=== PATIENT | female | born 1950 | race Caucasian/White ===

== ENCOUNTER 2019-07-23 09:09 | Emergency (ER) | payer BC, MEDICARE ==
[2019-07-23 09:37] VITALS: BP 148/55
--- NOTE | 2019-07-23 10:01 | UC ---
Hip/Pelvis Pain - HPI Summary HPI Summary: 69-year-old female comes in with a chief complaint of left hip pain. She woke up with it 3 days ago. Pain is primarily in the lateral aspect of the hip. Denies any rash. Denies any fevers or chills feels well otherwise. Pain is worse with range of motion. Denies any back pain. No known trauma. - History Of Current Complaint Chief Complaint: UCLowerExtremity Stated Complaint: LEFT HIP PAIN Time Seen by Provider: 07/23/19 09:49 Pain Intensity: 5 - Allergies/Home Medications Allergies/Adverse Reactions: Allergies Allergy/AdvReac Type Severity Reaction Status Date / Time No Known Allergies Allergy Verified 07/23/19 09:37 Home Medications: Home Medications Amitriptyline TAB* [Elavil TAB*] 10 mg PO BEDTIME 07/23/19 [History Confirmed ] Budesonide CAP(NF) 3 mg PO DAILY 07/23/19 [History Confirmed 07/23/19] Irbesartan (NF) [Avapro (NF)] 150 mg PO DAILY 07/23/19 [History Confirmed ] PMH/Surg Hx/FS Hx/Imm Hx Previously Healthy: Yes Cardiovascular History: Hypertension - Surgical History Surgical History: Yes Surgery Procedure, Year, and Place: Bowel Resection, 1988. R knee. Cholycystectomy 2015 - Family History Known Family History: Positive: Non-Contributory - Social History Alcohol Use: Rare Substance Use Type: None Smoking Status (MU): Former Smoker Type: Cigarettes Amount Used/How Often: 1 PPD Length of Time of Smoking/Using Tobacco: 25 Years Have You Smoked in the Last Year: No When Did the Patient Quit Smoking/Using Tobacco: ~2008 - Immunization History Most Recent Influenza Vaccination: July 2014 Review of Systems All Other Systems Reviewed And Are Negative: Yes Constitutional: Positive: Negative Skin: Positive: Negative Eyes: Positive: Negative ENT: Positive: Negative Respiratory: Positive: Negative Cardiovascular: Positive: Negative Gastrointestinal: Positive: Negative Motor: Positive: Other - see hpi Neurovascular: Positive: Negative Musculoskeletal: Positive: Other: - see hpi Neurological: Positive: Negative Psychological: Positive: Negative Is Patient Immunocompromised?: No Physical Exam Triage Information Reviewed: Yes Appearance: Well-Appearing, Well-Nourished, Pain Distress - mild with lt rom Vital Signs: Initial Vital Signs Temp 97.8 F 07/23/19 09:31 Pulse 83 07/23/19 09:31 Resp 18 07/23/19 09:31 BP 148/55 07/23/19 09:31 Pulse Ox 98 07/23/19 09:31 Vital Signs Reviewed: Yes Eye Exam: Normal Eyes: Positive: Conjunctiva Clear Neck: Positive: Supple Respiratory: Positive: No respiratory distress Musculoskeletal: Positive: Other: - Some tenderness to palpation over the left greater trochanter. There is pain with range of motion in the left hip with flexion extension and abduction. Patient is able to weight-bear. No back pain. No pain in the buttock along the sciatic distribution. Neurological: Positive: Alert Psychological: Positive: Age Appropriate Behavior Skin Exam: Normal Hip Injury Course/Dx - Course Course Of Treatment: Vacuum Furnace Operator: Jessenia Virk S ([id number]) Industrial Relations Specialist: YAQUELIN (YAQUELIN) Report Date: 07/23/2019 09:45:00 Report Status: Final Start of Report Content Patient Name: ALEXUS MINOR Medical Record#: [id number] Ordering Physician: José Robles MD Acct.#: [id number] : 12/1949 Age: 69 Sex: F Location: [facility] Exam Date: 07/23/19944 ADM Status: REG ER Order Information: HIP LEFT 2 VIEWS AND PELVIS Accession Number: [id number] CPT: 30283 Indication: Left hip pain. 2 views of the left hip are reviewed. There is no fracture or dislocation. No other bone or joint abnormality is identified. Calcifications in the soft tissues surrounding the left hip is noted. IMPRESSION: No fracture of the left hip is noted. < Electronically signed by Jessenia Virk MD in OV> 07/23/19 1031 Dictated By: Jessenia Virk MD Dictated Date/Time: 07/23/19 103 Transcribed Date/Time: 07/23/19 103 Copy to: CC:Lynne KEBEDE; José Robles MD Imaging - [facility] Imaging - [place] [facility] [place] Imaging - [facility] [address] [address] ph [phone]) ph [phone]) ph ([phone]) ===== End of Report Content Discussed the x-rays with the patient and her family. There are some calcifications seen in the x-ray. The overall plan is acetaminophen as needed Flexeril as needed. Because of the patient's Crohn she's been told to not take nonsteroidal anti-inflammatories. Follow-up with orthopedics or sports medicine. - Differential Dx/Diagnosis Provider Diagnosis: Left hip pain Discharge ED - Sign-Out/Discharge Documenting (check all that apply): Patient Departure All imaging exams completed and their final reports reviewed: Yes - Discharge Plan Condition: Stable Disposition: HOME Prescriptions: Cyclobenzaprine TAB* [Flexeril 10 MG TAB*] 10 mg PO TID PRN #15 tab MDD 3 PRN Reason: Pain - Moderate Patient Education Materials: Hip Pain (ED) Referrals: Lynne Sandhu [Primary Care Provider] - Paul Reynaga MD [Medical Doctor] - [facility] [Provider Group] Additional Instructions: FOLLOW UP WITH SPORTS MEDICINE OR ORTHOPEDICS. GET REEVALUATED SOONER IF NOT IMPROVING OR YOUR CONDITION WORSENS OR ANY QUESTIONS OR CONCERNS - Billing Disposition and Condition Condition: STABLE Disposition: Home
== END 2019-07-23 10:59 | disposition home or self-care (01) ==
LOC: UCCORT 09:09
DX: M25.552 Pain in left hip (principal); I10 Essential (primary) hypertension; Z87.891 Personal history of nicotine dependence
CPT/HCPCS: 99211; G0463

== ENCOUNTER 2019-10-07 09:46 | Emergency (ER) | payer MEDICARE ==
--- OUTSIDE RECORDS SUMMARY | 2019-10-07 11:06 | XMS REPORT | Continuity of Care Document ---
:1950 External Reference #:[id number] Author Name Rosi Chávez MD Address [address] [place] [address] Care Team Providers Name Role Phone Janet Art MD - Internal Medicine Care Team Information Forms Analysis Manager [phone] Marylin Huddleston MD - Care Team Information Forms Analysis Manager [phone] Ophthalmology Rosi Chávez MD - Internal Care Team Information Forms Analysis Manager Medicine Problems Active Problems Provider Date Gastroesophageal reflux disease Luis Manuel Duran MD Onset: 08/23/2015 Note: upper endoscopy to D2 2010 Essential hypertension Luis Manuel Duran MD Onset: 08/23/2015 Note: low renin Degenerative joint disease involving multiple Luis Manuel Duran MD Onset: 2014 joints Diverticular disease of colon Luis Manuel Duran MD Onset: 08/23/2015 Adult health examination Luis Manuel Duran MD Onset: 08/23/2015 Note: Next tdaP 2016. Aug 2016 LDL 106 HDL 33 TG 186 chol 176; LDL goal 160. Breast exam and mammogram Jan 2015 (Dr Watson). Pap 2012 (cervical cancer screening should be restarted 2016-pt. states she will go to [facility] Dr. Watson). T -1.1 2012 (osteoporosis screening should be restarted 2017). D 2014. Welcome to Medicare 23 Aug 2015. Iron deficiency Luis Manuel Duran MD Onset: 08/23/2015 Note: February 2016 ferritin 14 Non-alcoholic fatty liver Luis Manuel Duran MD Onset: 08/23/2015 Note: TS ABC TSH AAT SPEP ODILIA liver sono - 2013. Compression fracture of vertebral column Luis Manuel Duran MD Onset: 08/23/2015 Note: L1,5 Crohn's disease Luis Manuel Duran MD Onset: 08/23/2015 Note: since 1973; resection of 1/3 of the ileum and right hemicolectomy 1989; minimal aphtous ulcerations of the anastomosis, colonoscopy to ileotransverse anastomosis Bx December 2015 Rotator cuff syndrome Luis Manuel Duran MD Onset: 08/23/2015 Seborrheic dermatitis Luis Manuel Duran MD Onset: 08/23/2015 Peripheral venous insufficiency Luis Manuel Duran MD Onset: 08/23/2015 Lakisha Samayoa PA-C Onset: 09/28/2016 Note: Dr. Parsons Liver cyst Lakisha Hector PA-C Onset: 12/03/2016 Note: CT a&p Nov 2016 Heartburn Hector Roman MD Onset: 12/23/2016 Gallstone Jese Hinojosa MD,FACS Onset: 02/02/2017 Abdominal tenderness of left lower Hector Roman MD Onset: 06/25/2017 quadrant Digestive symptom Hector Roman MD Onset: 06/25/2017 Hyperlipidemia Janet Art MD Onset: 09/27/2017 Abnormal glucose level Janet Art MD Onset: 03/28/2018 Edema Janet Art MD Onset: 04/20/2018 Hypokalemia Janet Art MD Onset: 04/20/2018 Palpitations Janet Art MD Onset: 04/20/2018 Dyspnea Willie Tyler M.D., Onset: 09/08/2018 [facility] Tobacco user Willie Tyler M.D., Onset: 09/08/2018 [facility] Chronic obstructive lung disease Janet Art MD Onset: 10/12/2018 Social History Type Date Description Comments Sex Unknown Tobacco Use Start: Unknown End: Quit Unknown Smoking Status Reviewed: 08/21/19 Quit Smokeless Tobacco Never Used Smokeless Tobacco ETOH Use Occasionally consumes alcohol ETOH Use Rarely consumes alcohol Tobacco Use Start: Unknown End: Patient is a former smoker Unknown Recreational Drug Use Denies Drug Use Allergies, Adverse Reactions, Alerts Description No Known Drug Allergies Medications Active Medications SIG Qnty Indications Ordering Date Provider Irbesartan 1 by mouth every 90tabs Janet Art, 05/18/2019 150mg Tablets day MD Jeri Eisenberg Inhale 1 puff By 60units J44.9 Rinku Portillo, 09/12/2018 Mouth Every Day 62.5-25mcg/Inh Aerosol Proair Respiclick Take 1 Or 2 1units J44.9 Gagen, 09/06/2018 Puffs Every 4 To MS Marylin, 108(90Base) 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, 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 Aerosol Needed For Shortness Of Breath Amitriptyline HCL 1 tab by mouth 90tabs R19.4 Hector Roman MD 10/13/2017 10mg every day every Tablets night Omeprazole 1 tab by mouth 90caps Nick Hicks, 12/03/2016 20mg Capsules every day MD CAMERON Vitamin D3 1 by mouth every VatLuis Manuel osman, 08/23/2015 2000Unit day MD Capsules Cholestyramine 1 packet by 180units Janet Art, 05/28/2015 4gm Packet mouth twice a MD day Pentasa 2 by mouth four 720caps K50.90 Carlos Enrique, 500mg Capsules ER times a day MD Rajat Multivitamin Adult 1 by mouth every Unknown day Tablets Vitamin B12 1 by mouth every Unknown 2000mcg day Tablets ER Calcium 500 +D 1 by mouth every Unknown day 653-508lb-Mozf Tablets Budesonide 1 by mouth daily 30caps Carlos Enrique, 3mg Caps DR Rajat MD Part History Medications Citroma drink 1 bottle at 296ml K50.Rajat Boewrs, 04/06/2019 - 1.745GM/30ML 12pm (noon)the 05/26/2019 Solution day before the procedure Dulcolax 4 tablets taken a 4tabs K50.Rajat Bowers, 04/06/2019 - 5mg Tablets 8pm the day 05/26/2019 DR before the procedure Plenvu take half the 1box K50.90 Rajat Monaco, 04/06/2019 - 140gm Solution bottle the day 05/26/2019 Rec before the exam half the morning Immunizations CPT Code Status Date Vaccine Lot # [id number] Given 06/25/2019 Shingrix Zoster Vaccine (HZV), Recombinant, Subunit, Adjuvante 85127 Given 06/25/2019 Influenza High Dose 98290 Given 03/25/2017 Pneumovax Injection [id number] 41665 Given 03/25/2017 Tdap injection [id number] 92482 Given 06/30/2016 H1N1 Immuniation Adminstration 64942 Given 11/27/2015 Zoster Vaccine Live Injection [id number] 86824 Given 08/23/2015 Pneumococcal Conjugate Vaccine 13 Valent For [id number] Intramuscular Use 10568 Given 08/23/2015 Influenza High Dose [id number] 52028 Given 08/22/2008 flu vaccination 88801 Given 07/15/2007 flu vaccination U-Td Given 10/11/2006 Td(Adult),Unspecified U-Pneum Given 07/11/2006 Pneumococcal,Unspecified [id number] U-Td Given 10/11/1996 Td(Adult),Unspecified Vital Signs Date Vital Result Comment 08/21/2019 9:36am BP Systolic Sitting Right Arm 142 mmHg BP Diastolic Sitting Right Arm 64 mmHg Body Temperature 97.8 F Heart Rate 80 /min Respiratory Rate 18 /min Height 69 inches 5'9" Weight 207.00 lb BMI (Body Mass Index) 30.6 kg/m2 BSA (Body Surface Area) 2.10 m2 [place] body weight in kilograms 66 kg O2 % BldC Oximetry 98 % ra 06/09/2019 8:57am BP Systolic Sitting Right Arm 132 mmHg BP Diastolic Sitting Right Arm 68 mmHg Heart Rate 77 /min Respiratory Rate 18 /min Height 69 inches 5'9" Weight 204.00 lb BMI (Body Mass Index) 30.1 kg/m2 BSA (Body Surface Area) 2.08 m2 [place] body weight in kilograms 66 kg O2 % BldC Oximetry 98 % ra Results Test Acquired Date Facility Test Result H/L Range Note CBC 08/25/2019 [facility] White Blood 5.7 K/uL Normal 3.1-10.7 1 W/Automated [address] [place] [address] [phone] Red Blood Count 4.29 M/uL Normal 3.90-5.40 Hemoglobin 11.5 gm/dL Low 11.6-15.8 Hematocrit 36.9 % Normal 36.0-46.1 Mean Cell Volume 86.0 fl Normal 80.9-99.0 Mean Corpuscular HGB 26.8 pg Normal 25.9-32.7 Mean Corpuscular HGB Conc 31.2 g/dL Normal 30.8-34.3 Platelet Count 284 K/uL Normal 155-360 Red Cell Distri Width SD 49.5 fl High 36-47 Red Cell Distri Width %CV 15.7 % High 11.7-14.4 Mean Platelet Volume 10.0 fl Normal 8.9-12.4 Neut% 48.1 % Normal 40.4-72.8 Lymph % 36.3 % Normal 20.0-42.0 [place] % 10.8 % Normal 4.3-13.2 Eo% 3.7 % Normal 0.0-6.6 Bas% 0.9 % Normal 0.0-1.1 Immature Grans 0.2 % Normal 0.0-5.0 NRBC % 0.0 /100WBC < 10/ 100 WBC Neut# 2.73 K/uL Normal 1.8-7.0 Lymph # 2.06 K/uL Normal 1.0-4.0 [place] # 0.61 K/uL Normal 0.3-0.9 Eos # 0.21 K/uL Normal 0.0-0.5 Baso # 0.05 K/uL Normal 0.0-0.1 Immature Grans Absolute 0.01 K/uL NRBC # 0.00 K/uL Comprehensive 08/25/2019 [facility] Glucose 99 mg/dL Normal 74-106 Metabolic Panel [address], [place] [id number] [phone] BUN 15 mg/dL Normal 7-18 Creatinine 0.8 mg/dL Normal 0.6-1.3 Glom Filtration Rate, Estimate >60 mL/min >60 If >60 mL/min >60 2 BUN/Creat 18.7 ratio Sodium 138 mmol/L Normal 136-145 Potassium 3.7 mmol/L Normal 3.5-5.1 Chloride 108 mmol/L High 98-107 Carbon Dioxide 25 mmol/L Normal 21-32 Anion Gap 5 mEq/L Low 8-16 Calcium 8.3 mg/dL Low 8.5-10.1 Glycohemoglobin 08/25/2019 [facility] Glycohemoglobin 5.9 % Normal 4.2-6.[address] (A1c) [place] [address] [phone] eAG 123 mg/dL Laboratory test 08/25/2019 [facility] Thyroid 3.50 Normal 0.30-4.[address] Stim uIU/[place] [address] Hormone [phone] Vitamin D,25-Hydroxy 29.4 ng/mL Low 30.0-100.0 4 LDL Cholesterol Profile 08/25/2019 [facility] Cholesterol 198 mg/dL <[address] [place] [address] [phone] Triglycerides 191 mg/dL High <150 6 HDL Cholesterol 40 mg/dL >40 7 LDL-Cholesterol 120 mg/dL < 100 8 Liver Function 08/25/2019 [facility] Total Protein 7.4 g/dL Normal 6.4-8.[address] [place] [address] [phone] Albumin 3.6 g/dL Normal 3.4-5.0 Globulin 3.8 g/dL Normal 1.9-4.3 Alb/Glob 0.9 ratio Bilirubin,Total 0.4 mg/dL Normal 0.2-1.0 Bilirubin,Direct < 0.1 mg/dL Normal 0.0-0.2 Bilirubin,Indirect 0.3 mg/dL Normal 0.0-0.9 Sgot/Ast 21 U/L Normal 15-37 SGPT/Alt 39 U/L Normal 12-78 Alkaline Phosphatase 87 U/L Normal 45-117 Protein/Creatinine 06/05/2019 [facility] Creatinine,Urine 91.2 Not 9 Ratio,Urine [address] mg/[place] [address] [phone] Protein,Total,Urine 23.8 mg/dL Not Estab. Protein/Creatinine Ratio 261 MG/GCRE High 0-200 10 Ua RFX Micro & Culture 06/05/2019 [facility] Urine Color YELLOW Yellow II [address] [place] [address] [phone] Urine Clarity CLEAR Clear Urine Glucose - Dipstick NEGATIVE mg/dL Negative Urine Bilirubin - Dipstick NEGATIVE Negative Urine Ketone NEGATIVE mg/dL Negative Urine Specific [place] 1.020 Normal 1.010-1.030 Urine Blood NEGATIVE Negative Urine PH 5.5 Low 6.5-7.5 Urine Protein - Dipstick NEGATIVE mg/dL Negative Urine Urobilinogen - Dipstick 0.2 E.U./dL Normal 0.2-1.0 Urine Nitrite - Dipstick NEGATIVE Negative Urine Leuk Esterase NEGATIVE Negative Source: URINE, CLEAN CAT <SEE NOTE> 11 Basic Metabolic Panel 06/05/2019 [facility] Glucose 91 mg/dL Normal 74-106 [address] [place] [address] [phone] BUN 18 mg/dL Normal 7-18 Creatinine 0.8 mg/dL Normal 0.6-1.3 Glom Filtration Rate, Estimate >60 mL/min >60 If >60 mL/min >60 12 BUN/Creat 22.5 ratio Sodium 139 mmol/L Normal 136-145 Potassium 3.9 mmol/L Normal 3.5-5.1 Chloride 106 mmol/L Normal 98-107 Carbon Dioxide 25 mmol/L Normal 21-32 Anion Gap 8 mEq/L Normal 8-16 Calcium 8.7 mg/dL Normal 8.5-10.1 LDL Cholesterol Profile 06/05/2019 [facility] Cholesterol 196 mg/dL <200 13 [address] [place] [address] [phone] Triglycerides 241 mg/dL High <150 14 HDL Cholesterol 40 mg/dL >40 15 LDL-Cholesterol 108 mg/dL < 100 16 1 I10 2 Note: Persistent reduction for 3 months or more in an eGFR <60 mL/min/1.73 m2 defines CKD. Patients with eGFR values >/=60 mL/min/1.73 m2 may also have CKD if evidence of persistent proteinuria is present. The original MDRD equation for estimated GFR is not valid for patients less than 18 years of age. Additional information may be found at www.kdoqi.org. 3 Elevated levels of HbA1c suggest the need for more aggressive treatment of glycemia. The [place] Diabetes Association recommends that a primary goal of therapy should be a HbA1c of <7% and that physicians should re-evaluate the treatment regimen in patients with HbA1c values consistently >8%. 4 Vitamin D deficiency has been defined by the [place] of [employer] and an Endocrine Society practice guideline as a level of serum 25-OH vitamin D less than 20 ng/mL (1,2). The Endocrine Society went on to further define vitamin D insufficiency as a level between 21 and 29 ng/mL (2). 1. IOM ([employer] of [employer]). 2010. Dietary reference intakes for calcium and D. [place]: The National Academies Press. 2. Fide MF, Dilip NC, Dawn LIRA, et al. Evaluation, treatment, and prevention of vitamin D deficiency: an Endocrine Society clinical practice guideline. JCEM. 2010; 96(7):1911-30. Performed at: [facility] [address] [id number] Electrical Engineering Professor: Whit Connors MD, Phone: [phone] 5 Reference Guidelines*: Desirable: ........... < 200 mg/dL Borderline High: ..... 200-239 mg/dL High: ................ >= 240 mg/dL * The National Cholesterol Education Program (NCEP) 6 Reference Guidelines*: Normal: ............. < 150 mg/dL Borderline High: .... 150-199 mg/dL High: ............... 200-499 mg/dL Very High: .......... > 500 mg/dL * Source: National Cholesterol Education Program (NCEP) 7 Reference Guidelines*: Low HDL: ..... < 40 mg/dL Normal: ..... 40-60 mg/dL Desirable: ... > 60 mg/dL *The National Cholesterol Education Program(NCEP) 8 Reference Guidelines*: Optimal:........... <100 mg/dL Near Optimal....... 100-129 mg/dL Borderline High.... 130-159 mg/dL High............... 160-189 mg/dL Very High.......... >=190 mg/dL * Source: National Cholesterol Education Program (NCEP) 9 I10 Z13.220 R60.0 10 INFCE Result Units: mg/g creat Performed at: [facility] [address] [id number] Electrical Engineering Professor: Whit Connors MD, Phone: [phone] URINE, CLEAN CATCH 12 Note: Persistent reduction for 3 months or more in an eGFR <60 mL/min/1.73 m2 defines CKD. Patients with eGFR values >/=60 mL/min/1.73 m2 may also have CKD if evidence of persistent proteinuria is present. The original MDRD equation for estimated GFR is not valid for patients less than 18 years of age. Additional information may be found at www.kdoqi.org. 13 Reference Guidelines*: Desirable: ........... < 200 mg/dL Borderline High: ..... 200-239 mg/dL High: ................ >= 240 mg/dL * The National Cholesterol Education Program (NCEP) 14 Reference Guidelines*: Normal: ............. < 150 mg/dL Borderline High: .... 150-199 mg/dL High: ............... 200-499 mg/dL Very High: .......... > 500 mg/dL * Source: National Cholesterol Education Program (NCEP) 15 Reference Guidelines*: Low HDL: ..... < 40 mg/dL Normal: ..... 40-60 mg/dL Desirable: ... > 60 mg/dL *The National Cholesterol Education Program(NCEP) 16 Reference Guidelines*: Optimal:........... <100 mg/dL Near Optimal....... 100-129 mg/dL Borderline High.... 130-159 mg/dL High............... 160-189 mg/dL Very High.......... >=190 mg/dL * Source: National Cholesterol Education Program (NCEP) Procedures Date Code Description Status 05/03/2019 28387 Colonoscopy With Biopsy Completed 05/03/2019 [id number] Colonoscopy Completed 01/02/2019 [id number] Mammogram Completed 12/28/2017 [id number] Mammogram Completed 12/28/2017 [id number] Bone Mineral Density Test Completed 01/05/2017 [id number] Colonoscopy Completed 12/30/2015 [id number] Colonoscopy Completed 12/24/2014 [id number] Colonoscopy Completed 07/10/2013 [id number] Colonoscopy Completed 06/20/2012 [id number] Colonoscopy Completed 09/22/2010 [id number] Colonoscopy Completed Medical Devices Description No Information Available Encounters Type Date Location Provider Dx Diagnosis Office Visit 08/21/2019 Primary Care Saira K50.90 Crohn's disease, 9:30a Office MD Rosi unspecified, without complications I10 Essential (primary) hypertension J44.9 Chronic obstructive pulmonary disease, unspecified Office Visit 06/09/2019 9:00a Primary Care Lynne Mares R60.0 Localized edema Office H., PA I10 Essential (primary) hypertension R53.83 Other fatigue Office Visit 06/01/2019 8:45a GI Rajat Monaco K50.90 Maura morelos MD unspecified, without complications Office Visit 05/18/2019 10:20a Primary Care Janet Art K50.90 Crohn's disease, Office unspecified, without complications I10 Essential (primary) hypertension R60.0 Localized edema I87.2 Venous insufficiency (chronic) (peripheral) Z13.220 Encounter for screening for lipoid disorders Office Visit 04/06/2019 11:00a GI Rajat Monaco K50.90 Maura morelos MD unspecified, without complications Office Visit 03/13/2019 2:30p Pulmonology Rinku Portillo MD J44.9 Chronic obstructive pulmonary disease, unspecified Assessments Date Code Description Provider 08/21/2019 K50.Felice Crohn's disease, unspecified, without Rosi Chávez MD complications 08/21/2019 I10 Essential (primary) hypertension Rosi Chávez MD 08/21/2019 J44.9 Chronic obstructive pulmonary disease, Rosi Chávez MD unspecified 06/09/2019 R60.0 Localized edema Lynne Mares, PA 06/09/2019 I10 Essential (primary) hypertension Lynne Mares, PA 06/09/2019 R53.83 Other fatigue Lynne Mares, PA 06/01/2019 K50.90 Crohn's disease, unspecified, without Rajat Monaco MD complications 05/18/2019 K50.90 Crohn's disease, unspecified, without Janet Art MD complications 05/18/2019 I10 Essential (primary) hypertension Janet Art MD 05/18/2019 R60.0 Localized edema Janet Art MD 05/18/2019 I87.2 Venous insufficiency (chronic) Janet Art MD (peripheral) 05/18/2019 Z13.220 Encounter for screening for lipoid Janet Art MD disorders 05/03/2019 K50.90 Crohn's disease, unspecified, without Rajat Monaco MD complications 05/03/2019 K57.30 Diverticulosis of large intestine Rajat Monaco MD without perforation or abscess without bleeding 05/03/2019 K52.9 Noninfective gastroenteritis and Rajat Monaco MD colitis, unspecified 05/03/2019 K63.9 Disease of intestine, unspecified Rajat Monaco MD 05/03/2019 Z79.899 Other alf (current) drug therapy Rajat Monaco MD 04/06/2019 K50.90 Crohn's disease, unspecified, without Rajat Monaco MD complications 03/13/2019 J44.9 Chronic obstructive pulmonary disease, Rinku Portillo MD unspecified Plan of Treatment Future Appointment(s):11/21/2019 9:30 am - Rosi Chávez MD at Primary Care Rimrbz1603/12/2020 10:00 am - Amy Rivero PA at Vpodzghvvjx37/11/ 2019 - Rosi Cáhvez MDK50.90 Crohn's disease, unspecified, without [id number] Essential (primary) hypertensionNew Labs:Thyroid Peroxidase Antibodies, Scheduled: 11/14/19Follow up:f/u in 3 months labs to be done prior to nwzbrK38.9 Chronic obstructive pulmonary disease, unspecified Functional Status Functional Condition Comment Date Status Independent with all ADL's Active Mental Status Description No Information Available Referrals Description No Information Available
[2019-10-07 11:11] VITALS: BP 142/47
--- NOTE | 2019-10-07 11:24 | UC ---
Lower Extremity/Ankle HPI - HPI Summary HPI Summary: Per ballistics expert forensic: "c/o injuring L great toe on while going into a pool. Area red in color and swollen. " -here w/ her . sl[place]. -has been walking on it. she didnt have sneakers with her but wore her tevas that were firm soled and comfortable for her. -has been walkinga round without any assistive devices. wearing good sneakers today. - History of Current Complaint Chief Complaint: UCLowerExtremity Stated Complaint: LT FOOT INJURY Time Seen by Provider: 10/07/19 11:16 Pain Intensity: 3 - Allergies/Home Medications Allergies/Adverse Reactions: Allergies Allergy/AdvReac Type Severity Reaction Status Date / Time No Known Allergies Allergy Verified 10/07/19 11:06 Home Medications: Home Medications Albuterol HFA INHALER* [Ventolin HFA Inhaler*] 1 - 2 puff INH Q4H PRN 10/07/19 [ History Confirmed 10/07/19] Umeclidin/Vilant 62.5 MDI(NF) [ANORO 62.5/25 Ellipta DEVICE (NF)] 1 inh INH DAILY 10/07/19 [History Confirmed 10/07/19] PMH/Surg Hx/FS Hx/Imm Hx Previously Healthy: Yes Cardiovascular History: Hypertension - Surgical History Surgical History: Yes Surgery Procedure, Year, and Place: Bowel Resection, 1988. R knee. Cholycystectomy 2016 - Family History Known Family History: Positive: Non-Contributory - Social History Alcohol Use: Rare Substance Use Type: None Smoking Status (MU): Former Smoker Type: Cigarettes Amount Used/How Often: 1 PPD Length of Time of Smoking/Using Tobacco: 25 Years Have You Smoked in the Last Year: No When Did the Patient Quit Smoking/Using Tobacco: ~2008 - Immunization History Most Recent Influenza Vaccination: July 2014 Review of Systems All Other Systems Reviewed And Are Negative: Yes Constitutional: Positive: Negative Skin: Positive: Bruising Eyes: Positive: Negative Respiratory: Positive: Negative Cardiovascular: Positive: Negative. Negative: Palpitations, Chest Pain Gastrointestinal: Positive: Negative Neurovascular: Positive: Negative. Negative: Decreased Sensation, Decreased Pulses Musculoskeletal: Positive: Decreased ROM - bruising, dorsal toe pain Neurological: Negative: Weakness, Paresthesia, Numbness Psychological: Positive: Negative Is Patient Immunocompromised?: No Physical Exam Triage Information Reviewed: Yes Appearance: Well-Appearing, No Pain Distress, Well-Nourished - very pleasant, good historians Vital Signs: Initial Vital Signs Temp 97.6 F 10/07/19 11:06 Pulse 83 10/07/19 11:06 Resp 15 10/07/19 11:06 BP 142/47 10/07/19 11:06 Pulse Ox 98 10/07/19 11:06 Vital Signs Reviewed: Yes Respiratory Exam: Normal Respiratory: Positive: Lungs clear, Normal breath sounds, No respiratory distress, No accessory muscle use Cardiovascular Exam: Normal Cardiovascular: Positive: RRR Musculoskeletal: Positive: Other: - left great toe with dartk purple small amt of bruising over dorsal proximal phalynx. CR brisk. FROM. sensatiion intact at distal toe, + 2 DP/PT pulse. Neurological Exam: Normal Psychological Exam: Normal Lower Extremity Course/Dx - Course Course Of Treatment: Left great toes: INDICATION: Left great toe injury. TECHNIQUE: 3 views of the left great toe were obtained. FINDINGS: There is hallux valgus deformity and mild lateral subluxation of the proximal phalanx relative to the first metatarsal. There is soft tissue swelling overlying the distal phalanx. There is a nondisplaced intra-articular fracture visualized through the lateral base of the distal phalanx. IMPRESSION: NONDISPLACED INTRA-ARTICULAR FRACTURE OF THE DISTAL PHALANX. -I question if there may be a frx also in the proximal phalynx, but RAD did not appreciate it. I dont believe that it would change the plan at this tie but orthopedist will re-eval at follow up and review images as well. -BP slightly elev w/ pain -decliens ortho shoe as she is wearing firm soled shoe - Differential Dx/Diagnosis Differential Diagnosis/HQI/PQRI: Contusion, Dislocation, Fracture (Closed), Sprain, Strain Provider Diagnosis: Closed fracture of left great toe Discharge ED - Sign-Out/Discharge Documenting (check all that apply): Patient Departure All imaging exams completed and their final reports reviewed: Yes - Discharge Plan Condition: Stable Disposition: HOME Patient Education Materials: Toe Fracture in Children (ED) Referrals: Janet Art MD [Primary Care Provider] - Paul Reynaga MD [Medical Doctor] - 3 Days Additional Instructions: Make sure to use a hard soled shoe. ice, rest, ibuprofen for pain/swelling. It is important to follow up with orthopedics as you also have a significant bunion. Your great toe is very important for balance and follow up for appropriate healing is important. - Billing Disposition and Condition Condition: STABLE Disposition: Home
== END 2019-10-07 12:14 | disposition home or self-care (01) ==
LOC: UCCORT 09:46
DX: S92.425A Nondisplaced fracture of distal phalanx of left great toe, initial encounter for closed fracture (principal); I10 Essential (primary) hypertension; Z87.891 Personal history of nicotine dependence; X58.XXXA Exposure to other specified factors, initial encounter; Y92.9 Unspecified place or not applicable
CPT/HCPCS: 99212; G0463